=== PATIENT | female | born 1985 ===

== ENCOUNTER → 2022-11-09 12:47 | Outpatient (CLI) | payer BC, SELFPAY ==
--- NOTE | ~2022-11-09 | US_ITS ---
US pelvic complete 11/09/2022 13:04 Indication: Complex left ovarian cyst Procedure: High-resolution ultrasound of the pelvis using transabdominal technique Comparison: No prior studies for comparison. Findings: The uterus is surgically absent. Right ovary measures 2.5 x 1.5 x 1.9 cm. Left ovary measur es 3.5 x 2.2 x 2.9 cm. There is normal Doppler signal in both ovaries. No free fluid in the pelvis. Impression: 1: Unremarkable pelvic ultrasound. Reviewed, dictated and finalized at location B. Impression: 1: Unremarkable pelvic ultrasound.
== END ==
PROVIDERS: PCP Nurse Practitioner; Visit Provider Nurse Practitioner
DX: N83.292 Other ovarian cyst, left side (principal)
CPT/HCPCS: 76856